=== PATIENT | female | born 1960 | race Caucasian/White ===

== ENCOUNTER 2023-02-22 06:26 | Day surgery (SDC) | payer OTHER ==
[~2023-02-22 06:26] MED LIST: Dextrose 5%-0.45% NaCl 1,000 ML IV SCH; Sodium Chloride 0.9% 10 ML Syringe FLUSH PRN; Sodium Chloride 0.9% 10 ML Syringe FLUSH SCH
[2023-02-22] MEDS ORDERED: Midazolam 1 MG/ML 2 ML SDV ONE (07:51)
[2023-02-22] MEDS ORDERED: fentaNYL 100 MCG/2 ML SDV ONE (07:52)
[2023-02-22] MEDS ORDERED: Dextrose 5%-0.45% NaCl 1,000 ML IV SCH (08:00)
[2023-02-22] MEDS ORDERED: Midazolam 1 MG/ML 2 ML SDV IV ONE ×6 (08:01→08:07)
[2023-02-22] MEDS ORDERED: fentaNYL 100 MCG/2 ML SDV IV ONE ×4 (08:01→08:09)
== END 2023-02-22 10:15 | disposition home or self-care (01) ==
LOC: DL.ENDO 06:26
PROVIDERS: ATTEND Internal Medicine Gastroenterology
DX: Z12.11 Encounter for screening for malignant neoplasm of colon (principal); K64.8 Other hemorrhoids; K21.9 Gastro-esophageal reflux disease without esophagitis; I10 Essential (primary) hypertension; J45.20 Mild intermittent asthma, uncomplicated
CPT/HCPCS: J2250; J3010; J7042

== ENCOUNTER 2023-10-04 05:48 | Day surgery (SDC) | payer MEDICAID, OTHER ==
[~2023-10-04 05:48] MED LIST changes: -Sodium Chloride 0.9% 10 ML Syringe FLUSH PRN; -Sodium Chloride 0.9% 10 ML Syringe FLUSH SCH
[2023-10-04] MEDS ORDERED: Midazolam 1 MG/ML 2 ML SDV ONE (06:12)
[2023-10-04] MEDS ORDERED: Midazolam 1 MG/ML 2 ML SDV IV ONE ×3 (06:12→07:09)
[2023-10-04] MEDS ORDERED: fentaNYL 100 MCG/2 ML SDV IV ONE ×3 (06:12→07:08)
[2023-10-04] MEDS ORDERED: fentaNYL 100 MCG/2 ML SDV ONE (06:13)
== END 2023-10-04 09:15 | disposition home or self-care (01) ==
LOC: DL.ENDO 05:48
PROVIDERS: ATTEND Internal Medicine Gastroenterology
DX: K31.89 Other diseases of stomach and duodenum (principal); K21.9 Gastro-esophageal reflux disease without esophagitis; J45.909 Unspecified asthma, uncomplicated; I10 Essential (primary) hypertension; E66.09 Other obesity due to excess calories; Z68.35 Body mass index [BMI] 35.0-35.9, adult; Z79.899 Other long term (current) drug therapy
CPT/HCPCS: 43239; 87077; J2250; J3010; J7042

== ENCOUNTER 2024-08-21 05:57 | Day surgery (SDC) | payer MEDICAID, OTHER ==
[2024-08-21] MEDS ORDERED: fentaNYL 100 MCG/2 ML SDV IV ONE (05:58)
[2024-08-21] MEDS ORDERED: Midazolam 1 MG/ML 2 ML SDV IV ONE (05:58)
[2024-08-21] MEDS ORDERED: Midazolam 1 MG/ML 2 ML SDV ONE (06:10)
[2024-08-21] MEDS ORDERED: fentaNYL 100 MCG/2 ML SDV ONE (06:11)
[2024-08-21] MEDS: Dextrose 5%-0.45% NaCl 1,000 ML IV SCH (06:19)
[2024-08-21] MEDS: fentaNYL 100 MCG/2 ML SDV IV ONE ×2 (06:38)
[2024-08-21] MEDS: Midazolam 1 MG/ML 2 ML SDV IV ONE ×2 (06:39)
== END 2024-08-21 08:30 | disposition home or self-care (01) ==
LOC: DL.ENDO 05:57
PROVIDERS: ATTEND Internal Medicine Gastroenterology
DX: K21.00 Gastro-esophageal reflux disease with esophagitis, without bleeding (principal); K22.70 Barrett's esophagus without dysplasia; K44.9 Diaphragmatic hernia without obstruction or gangrene; J45.909 Unspecified asthma, uncomplicated
CPT/HCPCS: 43239; J2250; J3010; J7799